=== PATIENT | male | born 1990 | race Hispanic/Latino ===

== ENCOUNTER 2025-01-10 15:34 | Emergency (ER) | payer BC ==
[~2025-01-10] VITALS: Ht 172.7 cm; Wt 93.9 kg
[2025-01-10 16:23] LABS: BASOPHILS % 0.4 % (0.0-1.0); EOSINOPHILS # (AUTO) 0.2 (0.0-0.4); EOSINOPHILS % 2.5 % (0.0-6.0); HEMOGLOBIN 14.4 g/dL (14.0-18.0); LYMPHOCYTES # (AUTO) 3.1 (1.0-3.2); LYMPHOCYTES % 45.2 % (18.0-39.1); MEAN CORPUSCULAR HEMOGLOBIN 29.7 pg (28-32); MEAN CORPUSCULAR HGB CONC 33.5 g/dL (31-35); MEAN CORPUSCULAR VOLUME 88.7 fL (81-99); MONOCYTES # (AUTO) 0.3 (0.2-0.8); MONOCYTES % 4.2 % (4.4-11.3); NEUTROPHILS # (AUTO) 3.3 (2.1-6.9); NEUTROPHILS % 47.6 % (38.7-80.0); PLATELET COUNT 293 x10e3/uL (140-360); RED BLOOD COUNT 4.85 x10e6/uL (4.3-5.7); WHITE BLOOD COUNT 6.86 x10e3/uL (4.8-10.8)
[2025-01-10 16:40] LABS: INR 0.83; PROTHROMBIN TIME 11.9 seconds (11.9-14.5)
[2025-01-10 16:41] LABS: PARTIAL THROMBOPLASTIN TIME 31.5 seconds (23.8-35.5)
[2025-01-10 16:50] LABS: ALANINE AMINOTRANSFERASE 19 IU/L (0-55); ALBUMIN 4.5 g/dL (3.5-5.0); ALBUMIN/GLOBULIN RATIO 1.2 (0.8-2.0); ALKALINE PHOSPHATASE 69 IU/L (40-150); ANION GAP 17.8 mmol/L (8-16); BILIRUBIN,TOTAL 0.4 mg/dL (0.2-1.2); BLOOD UREA NITROGEN 10 mg/dL (7-26); BUN/CREATININE RATIO 10 (6-25); CALCIUM 9.4 mg/dL (8.4-10.2); CARBON DIOXIDE 20 mmol/L (22-29); CHLORIDE 103 mmol/L (98-107); CREATINE KINASE 89 IU/L (30-200); CREATININE, SERUM 0.98 mg/dL (0.72-1.25); EST GLOMERULAR FILTRATION RATE 104 ML/MIN (>=60); GLUCOSE 96 mg/dL (74-118); MAGNESIUM 1.9 MG/DL (1.3-2.1); POTASSIUM 3.8 mmol/L (3.5-5.1); SODIUM 137 mmol/L (136-145); TOTAL PROTEIN 8.3 g/dL (6.5-8.1)
[2025-01-10 17:07] LABS: TROPONIN I < 0.001 ng/mL (0-0.300)
[2025-01-10] MEDS: SODIUM CHLORIDE 0.9% 1000ML 1,000 ML IV STA (17:52)
[2025-01-10 18:45] VITALS: BP 131/76
[2025-01-10] MEDS: HYDRALAZINE HCL 20 MG/ML VIAL IV STA (18:45)
[2025-01-10 20:17] VITALS: PULSE 64; RESP 16; TEMP 98.5; O2SAT 95
== END 2025-01-10 20:17 | disposition home or self-care (01) ==
LOC: ER 15:58
DX: R53.83 Other fatigue (principal); R07.89 Other chest pain
CPT/HCPCS: 36415; 71045; 80053; 82550; 83735; 84484; 85025; 85379; 85610; 85730; 93005; 99284; J2470; J7030